=== PATIENT | female | born 1955 | race Caucasian/White ===

== ENCOUNTER 2023-03-02 11:47 | Emergency (ER) | payer MEDICARE, OTHER, SELFPAY ==
[2023-03-02 11:51] VITALS: BP 208/111; PULSE 68; RESP 16; TEMP 36.9; O2SAT 96; BMI 25.8
[2023-03-02 12:59] LABS: Basophils % 0.7 %; Eosinophils # 0.1 10^3/uL (0.0-0.8); Eosinophils % 1.6 %; Hematocrit 39.6 % (37.0-47.0); Hemoglobin 13.7 g/dL (11.5-15.3); Lymphocytes % 32.2 %; Mean Corpuscular HGB Conc 34.6 g/dL (30.0-36.0); Mean Corpuscular Hemoglobin 32.6 pg (28.0-34.0); Mean Corpuscular Volume 94.3 fl (81-99); Mean Platelet Volume 11.9 fL (7.4-10.4); Monocytes # 0.5 10^3/uL (0.2-0.9); Monocytes % 7.7 %; Neutrophils # 3.51 10^3/uL (1.8-7.7); Neutrophils % 57.5 %; Nucleated Red Blood Cells % 0 %; Platelet Count 251 10^3/cmm (130-400); Red Cell Distribution Width 11.7 % (12.1-15.1); White Blood Count 6.1 10^3/uL (4.0-10.0)
[2023-03-02 13:14] LABS: Alanine Aminotransferase 25 U/L (0-33); Albumin Level 4.7 g/dL (3.5-5.2); Alkaline Phosphatase 66 U/L (35-105); Aspartate Amino Transferase 19 U/L (0-32); Blood Urea Nitrogen 15 mg/dL (8-23); Calcium 9.4 mg/dL (8.5-10.5); Carbon Dioxide 25 mmol/L (22-29); Chloride 103 mmol/L (98-107); Creatinine Clr Calc Pharmacy 71.5085; Globulin 2.7 g/dL (1.3-4.6); Glucose 95 mg/dL (65-115); Osmolality Calculated 287 mOsm/kg (285-295); Sodium 138 mmol/L (136-145); Total Bilirubin 0.8 mg/dL (0.15-1.2); Total Protein 7.4 g/dL (6.6-8.7)
--- NOTE | 2023-03-02 17:35 | W.ED.ABDPA2 ---
HPI - Abdominal Pain General: Chief Complaint: Abdominal Pain Stated Complaint: rt side back pain Time Seen by Provider: 03/02/23 17:14 Source: patient Mode of arrival: ambulatory History of Present Illness: 67-year-old female who presents to the emergency room complaining of right-sided back pain and flank pain. She has a history of kidney stone she states it feels like she has had kidney stone again however she is able to rest relatively comfortably at this time she is on Eliquis she is not known for atrial fibrillation she has not noticed any hematuria no dysuria urgency or frequency no chest pain no shortness of breath. She has not really noticed anything exacerbates or relieves the pain. MD elicited complaint: abdominal pain Onset (ago): minute(s) Pain Consistency: intermittent Location: R flank Severity: moderate Quality: sharp Radiation: none Exacerbating factors: nothing Relieving factors: nothing Associated Symptoms: Denies anorexia, belching, bloating, change in bowel habits, change in stool character, chills, coffee ground emesis, constipation, GI cramping, diarrhea, dyspepsia, dysuria, excessive flatus, fever(s), heartburn, hematochezia, hematuria, hematemesis, fecal incontinence, loose stools, melena, nausea, poor appetite, syncope and vomiting Review of Systems Const: Denies: fever(s) or chills Card: Denies: syncope GI: Denies: nausea, vomiting, hematemesis, coffee ground emesis, heartburn, diarrhea, constipation, bloating, GI cramping, belching, excessive flatus, fecal incontinence, change in bowel habits, change in stool character, hematochezia or melena : Denies: dysuria or hematuria Physical Exam Const: GENERAL APPEARANCE: cooperative and comfortable ORIENTATION/CONSCIOUSNESS: Yes awake, Yes oriented to person, Yes oriented to place and Yes oriented to time HENMT: COMMON NORMALS: normocephalic, atraumatic and hearing grossly normal bilaterally HEAD & SCALP: normocephalic and atraumatic Resp: COMMON NORMALS: normal respiratory effort, No retractions, No use of accessory muscles and clear to auscultation bilaterally AUSCULTATION: clear to auscultation bilaterally Cardio: COMMON NORMALS: regular rate, regular rhythm and No murmurs present (Cardio) RATE: regular rate RHYTHM: regular rhythm GI: COMMON NORMALS: Soft to palpation and No hepatosplenomegaly present AUSCULTATION: Yes normoactive bowel sounds PALPATION: Yes Soft to palpation, No Tenderness to palpation present (GI), No Guarding due to palpation present (GI) and Yes No hepatosplenomegaly present Extremity: COMMON NORMALS: normal to inspection, capillary refill normal, no clubbing, cyanosis or edema, no calf tenderness and no pedal edema Neuro: SENSORIUM/ORIENTATION: Yes oriented to person, Yes oriented to place and Yes oriented to time Skin: COMMON NORMALS: no rashes or lesions noted GENERAL SKIN EXAM: no rashes or lesions noted Course Vital Signs: Vital signs: Vital Signs Temperature 98.4 F 03/02/23 11:51 Pulse Rate 55 L 03/02/23 19:56 Respiratory Rate 16 03/02/23 11:51 Blood Pressure 186/100 03/02/23 19:56 Pulse Oximetry 99 03/02/23 19:56 Oxygen Delivery Me thod Room Air 03/02/23 19:00 MDM - Abdominal Pain Medical Decision Making Labs and imaging reviewed. Normal white count no acute findings. Think this is more musculoskeletal back pain we will discharge patient home with NSAIDs and muscle relaxer follow-up with primary care return if is worsening or changes symptoms. Reviewed with patient as well. Medical Records I reviewed the patient's medical records. Lab Data I reviewed the patient's lab results. 03/02/23 12:42 03/02/23 12:42 Labs/Radiology: Laboratory Results WBC 6.1 10^3/uL (4.0-10.0) 03/02/23 12:42 RBC 4.20 10^6/uL (4.1-5.3) 03/02/23 12:42 Hgb 13.7 g/dL (11.5-15.3) 03/02/23 12:42 Hct 39.6 % (37.0-47.0) 03/02/23 12:42 MCV 94.3 fl (81-99) 03/02/23 12:42 MCH 32.6 pg (28.0-34.0) 03/02/23 12:42 MCHC 34.6 g/dL (30.0-36.0) 03/02/23 12:42 RDW 11.7 % (12.1-15.1) L 03/02/23 12:42 Plt Count 251 10^3/cmm (130-400) 03/02/23 12:42 MPV 11.9 fL (7.4-10.4) H 03/02/23 12:42 Neut % (Auto) 57.5 % 03/02/23 12:42 Lymph % (Auto) 32.2 % 03/02/23 12:42 [place] % (Auto) 7.7 % 03/02/23 12:42 Eos % (Auto) 1.6 % 03/02/23 12:42 Baso % (Auto) 0.7 % 03/02/23 12:42 Neut # (Auto) 3.51 10^3/uL (1.8-7.7) 03/02/23 12:42 Lymph # (Auto) 2.0 10^3/uL (0.8-4.8) 03/02/23 12:42 [place] # (Auto) 0.5 10^3/uL (0.2-0.9) 03/02/23 12:42 Eos # (Auto) 0.1 10^3/uL (0.0-0.8) 03/02/23 12:42 Baso # (Auto) 0.0 10^3/uL (0.0-0.1) 03/02/23 12:42 Nucleated RBC % (auto) 0 % 03/02/23 12:42 Nucleated RBCs # 0.0 /100WBC 03/02/23 12:42 Sodium 138 mmol/L (136-145) 03/02/23 12:42 Potassium 4.0 mmol/L (3.5-5.1) 03/02/23 12:42 Chloride 103 mmol/L (98-107) 03/02/23 12:42 Carbon Dioxide 25 mmol/L (22-29) 03/02/23 12:42 Anion Gap 14.0 (5-19) 03/02/23 12:42 BUN 15 mg/dL (8-23) 03/02/23 12:42 Creatinine 0.8 mg/dL (0.5-0.9) 03/02/23 12:42 GFR Calculation 72.0 mL/min (90-130) L 03/02/23 12:42 Glucose 95 mg/dL (65-115) 03/02/23 12:42 Calculated Osmolality 287 mOsm/kg (285-295) 03/02/23 12:42 Calcium 9.4 mg/dL (8.5-10.5) 03/02/23 12:42 Total Bilirubin 0.8 mg/dL (0.15-1.2) 03/02/23 12:42 AST 19 U/L (0-32) 03/02/23 12:42 ALT 25 U/L (0-33) 03/02/23 12:42 Alkaline Phosphatase 66 U/L (35-105) 03/02/23 12:42 Total Protein 7.4 g/dL (6.6-8.7) 03/02/23 12:42 Albumin 4.7 g/dL (3.5-5.2) 03/02/23 12:42 Globulin 2.7 g/dL (1.3-4.6) 03/02/23 12:42 Urine Color Yellow (Yellow) 03/02/23 17:57 Urine Appearance Clear (CLEAR) 03/02/23 17:57 Urine pH 6.5 (5-7) 03/02/23 17:57 Ur Specific [place] 1.010 (1.005-1.030) 03/02/23 17:57 Urine Protein Neg (Negative) 03/02/23 17:57 Urine Glucose (UA) Norm (Normal) 03/02/23 17:57 Urine Ketones Negative (Negative) 03/02/23 17:57 Urine Blood Neg (Negative) 03/02/23 17:57 Urine Nitrate Negative (Negative) 03/02/23 17:57 Urine Bilirubin Neg (Negative) 03/02/23 17:57 Urine Urobilinogen Norm mg/dL (Negative) 03/02/23 17:57 Ur Leukocyte Esterase Negative (Negative) 03/02/23 17:57 Discharge Plan Discharge Patient Disposition: Home Clinical Impression: Back pain Condition: Stable Prescriptions: New diclofenac sodium 75 mg tablet,delayed release (DR/EC) 75 mg PO BID PRN (Reason: pain) Qty: 30 0RF tizanidine 4 mg capsule 4 mg PO Q8H PRN (Reason: muscle spasticity) Qty: 14 0RF Discharge Orders: Discharge ED (Routine); Ordered 03/02/23 Ordered By: Wilmer Patel Patient Instructions: Back Pain (ED), Opioid Safety, Pain Management Activity Restrictions/Additional Instructions: Return for worsening pain despite treatment, fever greater than 100, vomiting liquids or medications, change in urine, any other concerning symptoms. Coding Level of Care Code ED Multi Care Technician for [facility]le
[2023-03-02 17:45] VITALS: BP 215/107; PULSE 54; O2SAT 99
[2023-03-02 18:00] VITALS: BP 227/103; PULSE 51; O2SAT 96
[2023-03-02 18:06] LABS: Add Urine Microscopic? NO; Charge for UA Resulting for Rev
[2023-03-02 18:15] LABS: Bilirubin Urine Neg (Negative); Blood Urine Neg (Negative); Glucose Urine UA Norm (Normal); Ketones Urine Negative (Negative); Leukocyte Esterase Urine Negative (Negative); Nitrate Urine Negative (Negative); Protein Urine Neg (Negative); Urine Appearance Clear (CLEAR); Urine Color Yellow (Yellow); Urobilinogen Urine Norm (Negative); pH Urine 6.5 (5-7)
[2023-03-02 18:30] VITALS: BP 189/92; PULSE 52; O2SAT 97
[2023-03-02 19:00] VITALS: BP 184/82; PULSE 51; O2SAT 98
[2023-03-02] MEDS: acetaminophen 500 mg Tablet 1000 MG PO (19:52)
[2023-03-02 19:56] VITALS: BP 186/100; PULSE 55; O2SAT 99
== END 2023-03-02 19:57 | disposition home or self-care (01) ==
PROVIDERS: Physician Assistant; Emergency Provider Family Medicine
DX: M54.9 Dorsalgia, unspecified (principal)
CPT/HCPCS: 36415; 80053; 81003; 85025; 99283